=== PATIENT | male | born 1985 | race Caucasian/White ===

== ENCOUNTER → 2017-09-02 | Outpatient (CLI) | payer SELFPAY | LOC: LAB.O 11:51 | PROVIDERS: ATTEND Physician Assistant | DX: M79.1 Myalgia (principal); R53.83 Other fatigue; R53.81 Other malaise ==

== ENCOUNTER → 2017-09-02 | Outpatient (CLI) | payer OTHER ==
--- NOTE | 2017-09-02 14:59 | US ---
EXAM DESCRIPTION: US SCROTUM CLINICAL HISTORY: TESTICULAR PAIN COMPARISON: None. TECHNIQUE: Routine sonographic imaging of the scrotum and contents was performed. FINDINGS: Testes: Normal in size and echotexture, without focal lesion. Normal color Doppler flow pattern. Right testes size:5 x2.6 x2.5 cm Left testes size: 4.3 x 2.4 x 1.7 cm Epididymides: Normal in size and echotexture without focal lesion. Normal color Doppler flow pattern. Hydrocele: Small right sided Varicocele: present on left side Other findings: None IMPRESSION: Small right hydrocele. Left varicocele. Electronically signed by: Danial Gonzalez MD 09/02/2017 2:57 PM CDT
== END ==
LOC: LAB.O 11:34
PROVIDERS: ATTEND Physician Assistant
DX: N50.811 Right testicular pain (principal); N50.812 Left testicular pain; N43.3 Hydrocele, unspecified; I86.1 Scrotal varices

== ENCOUNTER → 2019-02-07 | Outpatient (CLI) | payer OTHER ==
--- NOTE | 2019-02-07 11:21 | US ---
EXAM DESCRIPTION: Soft Tissue,Abdomen: ULTRASOUND. CLINICAL HISTORY: VENTRAL HERNIA WITHOUT OBSTRUCTION OR GANGRENE COMPARISON: None. TECHNIQUE: Transabdominal scanning: hagen-scale mode. Doppler mode. FINDINGS: Scanning in the mid line ventral abdomen in the region of pain. Fatty tissue hernia is noted between rectus abdominous muscles. This measures 8.0 x 1.7 x 11.1 cm. No bowel, no dominant solid mass, and no fluid collection. IMPRESSION: Probable mesenteric fatty hernia between bilateral rectus abdominis muscles, without bowel. 11 cm longest axis. No dominant solid mass, no fluid, no bowel. Electronically signed by: Constantine Jaimes MD 02/07/2019 11:19 AM [employer] SERVICES PL[employer]BER
== END ==
LOC: US 09:30
PROVIDERS: ATTEND Family Medicine
DX: K43.9 Ventral hernia without obstruction or gangrene (principal)

== ENCOUNTER 2019-02-15 08:00 | Day surgery (SDC) | payer OTHER ==
[~2019-02-15 08:00] MED LIST: DEXAMETHASONE INJ 10 MG/ML VIAL ONE; LACTATED RINGERS 1,000 ML ONE; LIDOCAINE 1% 10 ML VIAL INJ ONE; PROPOFOL 200 MG/20 ML VIAL IV ONE; ceFAZolin SODIUM 1 GM VIAL ONE; raNITIdine HCL INJ 25 MG/ML VIAL ONE
[2019-02-15] MEDS ORDERED: LACTATED RINGERS 1,000 ML IVS ONE (08:30)
[2019-02-15] MEDS ORDERED: BUPIVACAINE 0.5% W/EPI 30 ML VIAL INJ ONE (09:22)
[2019-02-15] MEDS ORDERED: MIDAZOLAM INJ 5 MG/5 ML VIAL ONE (09:29)
[2019-02-15] MEDS ORDERED: KETAMINE HCL 100 MG/ML VIAL ONE (09:36)
[2019-02-15] MEDS ORDERED: HYDROmorphone HCL INJ 2 MG/ML VIAL ONE (09:36)
[2019-02-15] MEDS ORDERED: ROCURONIUM BROMIDE 10 MG/ML VIAL ONE (09:36)
[2019-02-15] MEDS ORDERED: BUPIVACAINE 0.5% 30 ML VIAL INJ ONE (09:42)
[2019-02-15] MEDS ORDERED: SUGAMMADEX SODIUM 200 MG/2 ML VIAL IV ONE (09:43)
[2019-02-15] MEDS: LABETALOL INJ 5 MG/ML VIAL ONE ×4 (11:07→11:29)
--- NOTE | 2019-02-15 11:26 | OP ---
DATE OF PROCEDURE: 02/15/19 PREOPERATIVE DIAGNOSIS: 1. Spigelian hernia. POSTOPERATIVE DIAGNOSIS: 1. Spigelian hernia. PROCEDURE: 1. Laparoscopy. SURGEON: Jimi Armstrong MD. ANESTHESIA: General and local. FINDINGS: No evidence of Spigelian or other ventral hernia. Intraoperative ultrasound revealed a fatty tissue layer, preperitoneal, but no evidence of hernia defect. COMPLICATIONS: None. ESTIMATED BLOOD LOSS: None. CONDITION: Stable. PLAN: Discharge. INDICATION: This is a 33-year-old man who presented to the office with primary complaint of right sided abdominal pain and a bump that was moving. I could not feel an actual defect at that time, suspected Spigelian hernia. Ultrasound reported comment on a hernia with fatty tissue in it, approximately 11 by 5 cm between the muscles. Spigelian hernia was suspected, so laparoscopy with hernia repair was recommended. PROCEDURE: The patient was brought to the Operating Suite in supine position. General anesthesia was induced. He was prepped and draped in sterile fashion. 0.5% Marcaine with epinephrine was used at the incision site. While maintaining upward traction, a cut was made superior to the umbilicus. Veress needle was introduced. There was free flow of fluid into the peritoneal cavity. It was insufflated to an appropriate level with CO2 gas. A 5 mm trocar was placed, followed by the camera. There was no active bleeding or bowel injury. The patient was positioned head down to the left. No Spigelian type hernia defect was identified. There was no significant inguinal hernia. He was then placed over on the side, a little puzzling finding at this time to ensure there was not going on across the midline. There were no hernias seen ventral or inferior, just the falciform and fat above the pubis. I got the [facility] ultrasound to probe the abdomen. I did not see a defect. There was no significant fatty tissue or lipomas that I could see or intramuscular lipomas, so I had the geothermal hvac technician come in and do a formal. She recalled the patient and recalled that it was some preperitoneal type fat seen mostly along the midline and she reproduced this. This, in my opinion, is preperitoneal fat along the midline not associated with an actual hernia defect and no treatment needed. A look with the laparoscope on this side showed he just had significant fat underneath the falciform ligament, but nothing out of the ordinary for his body habitus. There was no evidence of other hernias or intramuscular lipomas or desmoids, etc. I notified the of the findings. The abdomen was desufflated. The was closed with Monocryl and dressing applied. We will discuss with him his symptoms again and no hernia was seen. #[id number] cc: SEBAS Hassan MTDMaikel
[2019-02-15 14:10] VITALS: O2SAT 90
[2019-02-15 14:14] VITALS: BP 138/99; TEMP 97.2
--- NOTE | 2019-02-15 16:23 | US ---
EXAM DESCRIPTION: Soft Tissue,Abdomen CLINICAL HISTORY: 33 years Male, RECHECK IN SURG COMPARISON: Ultrasound abdomen dated February 07, 2019. TECHNIQUE: Limited pre-op ultrasound evaluation of the abdomen at the midline. FINDINGS: Limited pre-op ultrasound evaluation of the abdomen was performed. 2 static images of the midline abdomen were provided which demonstrated no sonographic evidence of ventral hernia. IMPRESSION: 1. Limited pre-op ultrasound evaluation of the midline abdomen demonstrates no sonographic evidence of ventral hernia. Clinical correlation with physical examination is recommended. Electronically signed by: Danial Gonzalez MD 02/15/2019 4:22 PM [facility]
== END 2019-02-15 12:42 | disposition home or self-care (01) ==
LOC: AMB 08:00
PROVIDERS: ATTEND Surgery
DX: K43.9 Ventral hernia without obstruction or gangrene (principal)
CPT/HCPCS: 00840; 49320; 76705; J1170; J2250; J7120

== ENCOUNTER 2019-02-22 05:33 | Day surgery (SDC) | payer OTHER ==
[2019-02-22] MEDS ORDERED: SODIUM CHLORIDE 0.9% 50 ML VIAL ONE (07:00)
[2019-02-22] MEDS ORDERED: PROPOFOL 200 MG/20 ML VIAL IV ONE (07:00)
[2019-02-22] MEDS ORDERED: LIDOCAINE 1% 10 ML VIAL INJ ONE (07:00)
[2019-02-22] MEDS: LACTATED RINGERS 1,000 ML ONE (07:59)
[2019-02-22] MEDS ORDERED: KETAMINE HCL 100 MG/ML VIAL ONE (08:02)
[2019-02-22] MEDS ORDERED: DEXMEDETOMIDINE HCL 200 MCG/2 ML INJ IV ONE (08:02)
[2019-02-22] MEDS ORDERED: MIDAZOLAM INJ 2 MG/2 ML VIAL ONE (08:02)
[2019-02-22] MEDS ORDERED: fentaNYL CITRATE INJ 50 MCG/ML AMP ONE (08:02)
[2019-02-22] MEDS ORDERED: ELECTROLYTE-A 1,000 ML IVS ONE (08:49)
--- NOTE | 2019-02-22 10:16 | OP ---
DATE OF PROCEDURE: 02/22/19 PREOPERATIVE DIAGNOSIS: 1. History of hematemesis. 2. Hematochezia. 3. Constipation. POSTOPERATIVE DIAGNOSIS: 1. History of hematemesis. 2. Hematochezia. 3. Constipation. PROCEDURE: 1. EGD with pyloric biopsy times 2. 2. Colonoscopy with forceps biopsy times 1. 3. Open hemorrhoid banding times 2, SURGEON: Jimi Armstrong MD ANESTHESIA: General. PROCEDURE: First, the upper endoscopy was performed without difficulty. The esophagus was intubated. Pictures were taken. He did have some evidence of streaky esophagitis, but no sign of changes at the Z-line, no sign of Parham's. I think this was due to his chronic tobacco use and snuff. He showed some evidence of mild gastritis at the pylorus. [employer] Presenter biopsies were taken. The duodenum was normal. Once this was done, he was placed laterally. Digital rectal exam showed no masses, fissure or fistula. The colonoscope was introduced. We got to the cecum. There was a lot of undigested material in the colon. The majority of it was able to be irrigated away and I think we got an adequate exam, but there was undigested food. One small polyp in the distal ascending was excised and sent for pathology. On retroflexion, at the anus, there were not giant hemorrhoids, but some were there. Once the scope was removed, the anal speculum was placed and 2 bands were placed utilizing the suction loft worker apprentice with good position above the dentate line. Two bands were placed and the hemorrhoids did bleed, which gave some indication they could have been the cause of his bleeding. Otherwise, no other pathology was seen to explain his blood in his stools. The patient tolerated the procedure and was taken to Recovery to be discharged. #[id number] [facility]
[2019-02-22 10:30] VITALS: BP 139/96; TEMP 97.1; O2SAT 97
== END 2019-02-22 10:00 | disposition home or self-care (01) ==
LOC: AMB 05:33
PROVIDERS: ATTEND Surgery
DX: K92.1 Melena (principal); K92.0 Hematemesis; K31.89 Other diseases of stomach and duodenum; D12.2 Benign neoplasm of ascending colon; K64.9 Unspecified hemorrhoids; K59.00 Constipation, unspecified; F41.9 Anxiety disorder, unspecified; Z79.899 Other long term (current) drug therapy
CPT/HCPCS: 00813; 43239; 45380; 46221; A4216; J2250; J3010; J3490; J7120